=== PATIENT | male | born 1975 | race Caucasian/White ===

== ENCOUNTER 2021-03-30 22:33 | Emergency (ER) | payer OTHER ==
[~2021-03-30 22:33] MED LIST: IBUP600 PO; Robaxin-750750 MG PO
== END 2021-03-30 23:18 | disposition left against medical advice (07) ==
LOC: ER 22:33
DX: Z53.21 Procedure and treatment not carried out due to patient leaving prior to being seen by health care provider (principal)

== ENCOUNTER 2023-08-03 23:23 | Emergency (ER) | payer OTHER ==
[~2023-08-03] VITALS: Ht 182.9 cm; Wt 76.2 kg
[2023-08-03 23:43] VITALS: BP 146/87
[2023-08-04] MEDS ORDERED: Ibuprofen 400 MG Tab PO ONE (02:45)
== END 2023-08-04 03:00 | disposition home or self-care (01) ==
LOC: ER 23:23
DX: S83.91XA Sprain of unspecified site of right knee, initial encounter (principal); L55.0 Sunburn of first degree; W23.1XXA Caught, crushed, jammed, or pinched between stationary objects, initial encounter; Y93.31 Activity, mountain climbing, rock climbing and wall climbing; F17.200 Nicotine dependence, unspecified, uncomplicated; Z79.2 Long term (current) use of antibiotics
CPT/HCPCS: 73562-RT; 99283-25; A9270